=== PATIENT | female | born 1970 | race Native Hawaiian/Other Pacific Islander ===

== ENCOUNTER 2020-07-07 10:21 | Outpatient (CLI) | payer OTHER | END 2020-07-07 22:24 | disposition home or self-care (01) | LOC: LABW 10:21 | PROVIDERS: ATTEND Family Medicine | DX: R19.7 Diarrhea, unspecified (principal) | CPT/HCPCS: 82272; 83630; 87015; 87045; 87324; 87328; 87329; 87449; 87899 ==

== ENCOUNTER 2020-07-25 19:24 | Emergency (ER) | payer OTHER ==
[~2020-07-25] VITALS: Ht 157.5 cm; Wt 142.0 kg
[2020-07-25 20:44] LABS: PLATELET COUNT 269 K/uL (152-353)
[2020-07-25 20:54] LABS: POTASSIUM 3.8 mmol/L (3.6-5.2)
[2020-07-25 22:00] VITALS: BP 156/80; TEMP 98.1
== END 2020-07-25 22:00 | disposition home or self-care (01) ==
LOC: ED 19:24
PROVIDERS: Family Medicine
DX: K21.9 Gastro-esophageal reflux disease without esophagitis (principal); N39.0 Urinary tract infection, site not specified
CPT/HCPCS: 36415; 80053; 81000; 82150; 83605; 83690; 85027; 87077; 87086; 87088; 87186; 96372; 99283; J0696

== ENCOUNTER 2020-11-09 17:42 | Emergency (ER) | payer OTHER ==
[~2020-11-09] VITALS: Ht 157.5 cm; Wt 142.0 kg
[2020-11-09 19:14] LABS: PLATELET COUNT 249 K/uL (152-353)
[2020-11-09 19:33] LABS: POTASSIUM 5.1 mmol/L (3.6-5.2)
[2020-11-09 20:30] VITALS: BP 131/81; TEMP 97
== END 2020-11-09 20:30 | disposition home or self-care (01) ==
LOC: ED 17:42
PROVIDERS: Family Medicine
DX: J32.8 Other chronic sinusitis (principal); J06.9 Acute upper respiratory infection, unspecified; R51.9 Headache, unspecified; Z03.818 Encounter for observation for suspected exposure to other biological agents ruled out
CPT/HCPCS: 36415; 80053; 85027; 87502; 87635; 87651; 99283; U0003

== ENCOUNTER 2020-11-12 19:41 | Observation (INO) | payer OTHER ==
[~2020-11-12] VITALS: Ht 157.5 cm; Wt 144.0 kg
[2020-11-12 19:41] VITALS: BP 123/76; TEMP 98.7
[2020-11-12 20:00] VITALS: BP 111/85
[2020-11-12 20:38] LABS: PLATELET COUNT 237 K/uL (152-353)
[2020-11-12 20:44] LABS: POTASSIUM 4.7 mmol/L (3.6-5.2)
[2020-11-12 21:00] VITALS: BP 124/80
[2020-11-12 21:30] VITALS: BP 146/74; TEMP 97.8
[2020-11-12 22:23] VITALS: BP 124/75; TEMP 97.8; Ht 157.5 cm; Wt 144.0 kg
[2020-11-12 23:59] VITALS: BP 124/75; TEMP 97.8
--- NOTE | 2020-11-13 00:12 | NUR ---
11/12/206: PT ARRIVED BY WC FROM ER TO ROOM 1108. PT ALERT,ORIENTED X4, DENIES PAIN AT THIS TIME. O2 AT 2L NC IN USE. NO DISTRESS NOTED.
[2020-11-13 04:13] VITALS: BP 140/82; TEMP 98.1
--- NOTE | 2020-11-13 04:58 | NUR ---
PT IS RESTING WELL. NO RESPIRATORY DISTRESS NOTED, NO COMPLAINTS VOICED.
[2020-11-13 05:00] LABS: PLATELET COUNT 236 K/uL (152-353)
[2020-11-13 08:00] VITALS: BP 113/52; TEMP 97.6
[2020-11-13 12:00] VITALS: BP 133/98; TEMP 97.7
[2020-11-13] MEDS ORDERED: AMIT25TA22 PO (14:34)
[2020-11-13] MEDS ORDERED: NUCYNTA ER100 MG PO (14:36)
[2020-11-13] MEDS ORDERED: ALBUTEROL0.083 % INH (14:38)
[2020-11-13] MEDS ORDERED: SIMV20TA2 PO (14:39)
[2020-11-13] MEDS ORDERED: PANTOPRAZOLE 40MG TA PO (14:40)
[2020-11-13] MEDS ORDERED: FLUOXETINE40 MG PO (14:42)
[2020-11-13] MEDS ORDERED: TIROSINT25 MCG PO (14:42)
[2020-11-13] MEDS ORDERED: FURO10IN15 PO (14:43)
[2020-11-13] MEDS ORDERED: ROPINIROLE1 MG PO (14:43)
[2020-11-13] MEDS ORDERED: JANUVIA100 MG PO (14:45)
[2020-11-13] MEDS ORDERED: ACID CONTROL20 MG PO (14:46)
[2020-11-13] MEDS ORDERED: NEURONTIN800 MG PO (14:47)
[2020-11-13] MEDS ORDERED: TIZANIDINE HYDRO4 MG PO (14:49)
[2020-11-13] MEDS ORDERED: PROLATE PO (14:50)
[2020-11-13] MEDS ORDERED: BUDE1AER5 INH (14:51)
--- NOTE | 2020-11-13 14:55 | NUR ---
11/13/20 0174 NEW ORDER FOR 02 QUALIFER PER RESPIRATORY THERAPY.NOTIFIED RESPIRATORY AT THIS TIME AND FAXED ORDER TO THEM.CC 11/13/20 5034 NOTIFED OF RESP WALKING PT WITHOUT OXYGEN THERAPY SHE IS IS AT 97 PERCENT ON ROOM AIR.ALSO NOTIFED HER OF HOME MEDS PLACED IN COMPUTER.CC
[2020-11-13] MEDS ORDERED: LEVAQUIN 500MG TAB PO (15:22)
[2020-11-13] MEDS ORDERED: LEVAQUIN250 MG PO (15:25)
[2020-11-13 16:00] VITALS: BP 144/90; TEMP 98
--- NOTE | 2020-11-13 18:33 | NUR ---
11/13/20 1830 PT DISCHARGE WITH INSTRUCTIONS GIVEN AND SIGNED.PT WILL FOLLOW UP WITH PRIMARY PHYISCAN.HOME MEDICATION RETURNED TO [facility] AND SIGNED PAPER.SALINE LOCK REMOVED APPLIED 2X2 APPLIED TAPE.PT TOOK OUT VIA [facility] TO [facility]
== END 2020-11-13 18:30 | disposition home or self-care (01) ==
LOC: ED 19:41 → MED/SURG 21:23 → UNDODEPER 11-13 22:05
PROVIDERS: ADMIT Emergency Medicine Emergency Medical Services; ATTEND Internal Medicine Endocrinology, Diabetes & Metabolism
DX: J18.8 Other pneumonia, unspecified organism (principal); E78.49 Other hyperlipidemia; G25.81 Restless legs syndrome; K21.9 Gastro-esophageal reflux disease without esophagitis; E11.42 Type 2 diabetes mellitus with diabetic polyneuropathy; E03.8 Other specified hypothyroidism; M54.89 Other dorsalgia; F32.89 Other specified depressive episodes; G51.0 Bell's palsy; I25.10 Atherosclerotic heart disease of native coronary artery without angina pectoris
CPT/HCPCS: 36415; 80053; 80162; 83605; 83880; 85027; 87040; 87635; 94760; 96360; 96365; 96375; 99220; 99284; G0378; J1100; J3490; U0003

== ENCOUNTER 2020-11-21 13:05 | Outpatient (CLI) | payer OTHER ==
[~2020-11-21 13:05] MED LIST: ACID CONTROL20 MG PO; ALBUTEROL0.083 % INH; AMIT25TA22 PO; BUDE1AER5 INH; FLUOXETINE40 MG PO; FURO10IN15 PO; JANUVIA100 MG PO; LEVAQUIN 500MG TAB PO; LEVAQUIN250 MG PO; NEURONTIN800 MG PO; NUCYNTA ER100 MG PO; PANTOPRAZOLE 40MG TA PO; PROLATE PO; ROPINIROLE1 MG PO; SIMV20TA2 PO; TIROSINT25 MCG PO; TIZANIDINE HYDRO4 MG PO
== END 2020-11-21 22:44 | disposition home or self-care (01) ==
LOC: INF 13:05
PROVIDERS: ATTEND Internal Medicine
DX: Z23 Encounter for immunization (principal)
CPT/HCPCS: 96372

== ENCOUNTER 2020-12-13 13:05 | Outpatient (CLI) | payer OTHER | END 2020-12-13 19:39 | disposition home or self-care (01) | LOC: INF 13:05 | PROVIDERS: ATTEND Internal Medicine | DX: Z23 Encounter for immunization (principal) | CPT/HCPCS: 96372 ==

== ENCOUNTER 2021-04-19 20:23 | Emergency (ER) | payer OTHER ==
[~2021-04-19] VITALS: Ht 157.5 cm; Wt 143.8 kg
[2021-04-19 23:00] VITALS: BP 144/87; TEMP 98.2
== END 2021-04-19 23:00 | disposition home or self-care (01) ==
LOC: ED 20:23
DX: J06.9 Acute upper respiratory infection, unspecified (principal); Z20.822 Contact with and (suspected) exposure to COVID-19
CPT/HCPCS: 36415; 87635; 87651; 99283; U0003